=== PATIENT | female | born 1975 | race Caucasian/White ===

== ENCOUNTER → 2018-04-21 | Outpatient (CLI) | payer OTHER | LOC: M.ULTRA 08:47 | DX: K76.0 Fatty (change of) liver, not elsewhere classified (principal); K76.89 Other specified diseases of liver; K42.9 Umbilical hernia without obstruction or gangrene; R16.1 Splenomegaly, not elsewhere classified; R10.84 Generalized abdominal pain ==

== ENCOUNTER → 2018-04-29 | Outpatient (CLI) | payer OTHER | LOC: M.LAB 04:27 | DX: Z01.812 Encounter for preprocedural laboratory examination (principal) ==

== ENCOUNTER → 2018-05-04 | Outpatient (CLI) | payer OTHER | LOC: M.NUC 07:31 | DX: R10.11 Right upper quadrant pain (principal); F41.8 Other specified anxiety disorders; E78.5 Hyperlipidemia, unspecified; I10 Essential (primary) hypertension; E66.9 Obesity, unspecified ==

== ENCOUNTER → 2018-06-14 | Day surgery (SDC) | payer OTHER ==
[~2018-06-14] MED LIST: EFFEXOR 5050 MG/1 T1 PO; GEMFIBROZIL 60600 MG PO; HYZAAR 50-12.51 EACH PO; OMEPRAZOLE 20 M20 M1 PO; ROXICODONE5 M2 PO
[2018-06-14 08:19] LABS: HEMOGLOBIN 12.3 gm/dL (12.0-15.0); MCH 26.3 pg (26.0-34.0); MCHC 33.3 g/dL (28.0-37.0); RBC 4.69 mil/uL (4.20-5.00); RDW-CV 13.9 % (10.5-14.5)
[2018-06-14 08:30] LABS: CALCIUM 8.6 mg/dL (8.5-10.1); CREATININE 0.8 mg/dL (0.6-1.3); POTASSIUM 3.4 mmol/L (3.5-5.1)
--- NOTE | 2018-06-14 17:09 | EKG ---
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1975 Requested By: Jayleen Cardozo Order Number: [id number] Kathleen MD: Eliseo Keyes Measurements Intervals [place] Rate: 80 P: 33 NM: 179 QRS: -36 QRSD: 102 T: 16 QT: 397 QTc: 458 Interpretive Statements Sinus rhythm Left atrial enlargement Left axis deviation Borderline low voltage, extremity leads Abnormal R-wave progression, late transition No previous ECG available for comparison Electronically Signed On 06-14-2018 17:09:07 CDT by Eliseo Keyes [email or web address] <ELECTRONICALLY SIGNED> By: Eliseo Keyse MD, [facility] 06/14/18 1709 5 5 Eliseo Keyes MD, FAC /EPI
--- NOTE | 2018-06-15 12:56 | OP ---
[address] [address] OPERATIVE REPORT Name: CRYSTAL JACOBSEN Room: [facility].#: [id number] Admission: 06/14/18 Attend Phys: Jayleen Cardozo DO Discharge: Date of : 71 Report #: [id number] THIS REPORT FOR: //name// CC: Jayleen Navas DICTATED BY: Chris Fleming DO DATE OF SERVICE: 06/14/2018 PREOPERATIVE DIAGNOSIS: Biliary dyskinesia. POSTOPERATIVE DIAGNOSIS: Biliary dyskinesia. FINDINGS: Adhesions in the right lateral abdomen, adhesions and omental attachment to the gallbladder, small umbilical hernia with incarcerated preperitoneal fat. SURGEON: Jayleen Cardozo DO. COSURGEON: Dr. Chris Fleming DO PGY2. COMPLIANCE AIDE: Colby Scott, MS3. OPERATION PERFORMED: Laparoscopic cholecystectomy with primary repair of umbilical hernia. ANESTHESIA TYPE: General and local. ESTIMATED BLOOD LOSS: 5 mL. SPECIMEN REMOVED: Gallbladder. COMPLICATIONS: None. CONDITION: Stable. DISPOSITION: PACU to home. INDICATIONS FOR PROCEDURE: The patient is a pleasant 43-year-old female who presented to the office with chief complaint of right upper quadrant abdominal pain, aggravated by meals. The patient had abdominal ultrasound that showed no cholelithiasis or sludge. She subsequently had a PIPIDA scan that showed her to have a gallbladder ejection fraction of 20%. Discussed with the patient laparoscopic cholecystectomy. The patient wished to move forward with surgery. Full discussion of procedure, alternatives, risks [place] [address] OPERATIVE REPORT Name: DELMARCRYSTAL Room: [facility] M.R.#: [id number] Admission: 06/14/18 Attend Phys: Jayleen Cardozo DO Discharge: Date of : 71 Report #: [id number] discussed include but not limited to bleeding, infection, postoperative pain, scarring, hernia, conversion to open procedure, injury to other abdominal organs mainly stomach, bowel, liver, bile ducts and bile duct injury were to occur, transfer to tertiary care facility for higher level of care and further surgery with hepatobiliary specialist, bile leak, biloma and anesthesia risks. The patient was understanding of these risks and agreed to proceed with surgery. The patient also had a small umbilical hernia. Discussed that we would repair this primarily at the time of surgery without mesh. OPERATIVE TECHNIQUE: The patient was again seen and examined in preop holding, fully informed written consent was obtained. Preoperative antibiotics of 2 grams Ancef were given. The patient was subsequently transported to the operating room suite and placed on the operating table in supine position. At this time, anesthesia induced general endotracheal intubation and general anesthesia was successful. Next, the board was placed to the feet. SCDs were placed to bilateral lower extremity calves. Right arm was tucked. Left arm was placed on an arm board. Grounding pad was placed to right lateral thigh, all extremities were padded and protected. The patient was prepped and draped using standard sterile fashion. Time-out was performed prior to onset of procedure. Began by injecting 10 mL of 0.5% Marcaine inferior to the umbilicus. We then made a horizontal incision inferior to the umbilicus, dissected down through dermal and subcutaneous tissue until the umbilical hernia was reached. This was dissected circumferentially around the umbilical stalk and then removed from the umbilical stalk. Hernia sac was entered, was noted to be containing incarcerated preperitoneal fat. This was reduced back into the abdomen. Hernia sac and some preperitoneal fat were excised from the fascial edges. A hemostat was used to ferrer the peritoneum. At this time, 2-0 Vicryl stay sutures were placed on the bilateral fascial edges. 12 mm Omar trocar was placed in the abdomen. Abdomen was insufflated first using low flow, then high flow. The patient was placed in reverse Trendelenburg with left side down. A 10 mm 0 degree laparoscopic camera was brought into the field and inserted into the abdomen, noting no underlying injury to the abdominal contents on entry into the abdomen. We surveyed the abdomen. There was noted to be dense adhesions on the right lateral abdomen, extending up to the right upper quadrant as well as omentum covering liver, with attachments to the liver and gallbladder. Additional 10 mm trocar was placed in the epigastric region and two 5 mm trocars were placed in the right upper quadrant. The omentum was swept caudally. The right upper quadrant adhesions were taken down using electrocautery. Once the gallbladder was visualized, intraoperative picture was obtained. Gallbladder was grasped with locking wavy grasper, elevated cephalad and anteriorly. Omental and peritoneal attachments of the gallbladder were taken using electrocautery, carefully dissected down until Jostin's pouch was located. Jostin's pouch was grasped. We began the dissection lateral aspect of the gallbladder into the peritoneum, this was taken back to the liver edge using Maryland grasper. The cystic duct was isolated circumferentially. The cystic artery was noted to be just posterior and medial to this. This was dissected [address] [address] OPERATIVE REPORT Name: CRYSTAL JACOBSEN Room: [facility]#: [id number] Admission: 06/14/18 Attend Phys: Jayleen Cardozo DO Discharge: Date of : 71 Report #: [id number] out in similar fashion. Critical view of safety was obtained. Intraoperative pictures were taken. A 10 mm clip printed products assembler was brought into the field. Cystic duct was clipped twice proximally and twice distally and ligated using laparoscopic scissors. Cystic duct was clipped twice distally, once proximally. This was also transected using laparoscopic scissors. Intraoperative pictures were then obtained. Noted to be no hemorrhage or bile leak from the cystic duct or artery clips. Again, the dissection of the gallbladder from the liver bed, noted an additional small posterior artery coursing into the posterior aspect of the gallbladder. This was isolated using Maryland dissector and also clipped once distally and proximally and transected using laparoscopic scissors. Gallbladder was then excised from the liver bed. Hemostasis of the liver bed was achieved using electrocautery. Gallbladder was placed into a 10 mm EndoCatch bag through the umbilical port. The patient was then leveled out. Abdomen desufflated under direct visualization. Epigastric right upper quadrant trocars were removed. Once the abdomen was fully desufflated, Omar trocar was removed. The gallbladder was removed through the umbilical incision. Fascial edges were then grasped with bilateral lanre Palomo. Stay sutures were removed and a 0 Vicryl interrupted suture in [id number] fashion was used to close the fascial defect of the umbilical hernia. Once this was performed, layered closure was done, subcutaneous space was closed using 3-0 Vicryl. Skin was closed using running 4-0 Monocryl. Interrupted 4-0 Monocryl were used to close the epigastric right upper quadrant trocar. The abdomen was cleansed using wet and dry lap. Additional 30 mL of 0.5% Marcaine was used for local anesthetic. Sterile dressings were applied, Mastisol, Steri-Strips, gauze and Tegaderms. The patient was extubated in the operating room and transferred to PACU in stable condition after brief recovery from anesthesia PLAN: To discharge to home and follow up in the office with Dr. Cardozo in 1 week. <ELECTRONICALLY SIGNED> By: Jayleen Cardozo DO 06/15/18 1256 1036 [id number] Cardozo DO /nt
--- NOTE | 2018-06-16 12:05 | PATH ---
[address] [address] PATHOLOGY RPT PROCEDURE Name: TAMIKA JACOBSEN Room: [facility] M.R.#: [id number] Admission: 06/14/18 Date of : 71 Discharge: Report #: [id number] Path Case #: [id number] [facility] Accession Number: [id number] . 01 Material submitted: . GALLBLADDER . 01 Clinical history: . Biliary dyskinesia, umbilical hernia . 02 Diagnosis: Gallbladder: - Chronic cholecystitis with cholesterolosis. (BRAULIO:tye; 06/15/2018) MBR/06/15/2018 . 02 Electronically signed: . Jonathan De Dios MD, Pathologist NPI- [id number] . 01 Gross description: . The specimen is received in formalin, labeled "Tamika Jacobsen, gallbladder", is an intact, gallbladder measurin 7.0 x 3.2 x 1.7 cm. The serosa is covered by yellow, lobulated adipose tissue. The lumen is filled with yellow-green viscous bile and no discrete calculi. The mucosa is green and diffusely covered by yellow flecks. The wall has an average thickness of 0.1 cm. No discrete masses are identified. Lead Machinist tissue is submitted in A1. (SWS; 06/14/2018) SHS/SHS . 02 Pathologist provided ICD-10: K81.1, K82.4 . 02 CPT . 981576 Specimen Comment: A courtesy copy of this report has been sent to Specimen Comment: [phone], . Specimen Comment: Report sent to / DR ESPINAL Specimen Comment: A duplicate report has been generated due to demographic updates. Performed at: [address] [id number] MD Olman Munoz MD Phone: [phone] Performed at: 02 [facility] [address] [place], [place] [id number] [address] [address] PATHOLOGY RPT PROCEDURE Name: TAMIKA JACOBSEN Room: [facility].#: [id number] Admission: 06/14/18 Date of : 71 Discharge: Report #: [id number] Path Case #: [id number] MD Jonathan De Dios MD Phone: [phone]
== END | disposition home or self-care (01) ==
LOC: M.SUR 07:40
PROVIDERS: Surgery
DX: K81.1 Chronic cholecystitis (principal); K42.0 Umbilical hernia with obstruction, without gangrene; K66.0 Peritoneal adhesions (postprocedural) (postinfection); I10 Essential (primary) hypertension; E78.5 Hyperlipidemia, unspecified; F32.9 Major depressive disorder, single episode, unspecified; Z98.890 Other specified postprocedural states; Z79.899 Other long term (current) drug therapy; Z88.8 Allergy status to other drugs, medicaments and biological substances

== ENCOUNTER → 2019-05-17 | Outpatient (CLI) | payer OTHER ==
--- NOTE | 2019-05-24 18:23 | SLEEP ---
[address] [address] SLEEP STUDY REPORT Name: CRYSTAL JACOBSEN Room: [facility]#: [id number] Admission: 05/17/19 Attend Phys: Eliseo Keyes MD Discharge: Date of : 71 Report #: [id number] THIS REPORT FOR: //name// CC: Flory Keyes This study has been reviewed in its entirety by a board certified sleep specialist DATE OF SERVICE: 05/17/2019 HOME SLEEP STUDY REFERRING PHYSICIAN: Eliseo Keyes MD. The patient is a 44-year-old who weighs 275 pounds with a BMI of 40.6. The patient's [place] score was 9. The patient underwent home sleep study performed at [facility]. Total recording time was 411 minutes. During the night of the study, the patient had 46 obstructive apneas, no central or mixed apneas and 83 hypopneas. The patient's AHI was 19.6 per hour with a supine AHI of 29 per hour. Nocturnal oximetry study revealed an average oxygen saturation of 94% with lowest of 79%. Five minutes were spent in oxygen saturation less than 90%. EKG revealed mean heart rate of 82 beats per minute. IMPRESSION: 1. Moderate sleep apnea-hypopnea syndrome with worsening during supine sleep. Total AHI 19.6 per hour with a supine AHI of 29 per hour. 2. Mild nocturnal hypoxia secondary to obstructive sleep apnea. RECOMMENDATIONS: 1. The patient would benefit from treatment of sleep apnea with CPAP. This can be done as an in-lab versus home auto-titration study. 2. Once the patient is optimally treated with CPAP, then follow up in 4-6 weeks to assess compliance and to document clinical improvement. 3. Avoid supine sleep. 4. Weight loss is strongly advised. 5. Avoid [place] [address] SLEEP STUDY REPORT Name: CRYSTAL JACOBSEN Room: [facility]#: [id number] Admission: 05/17/19 Attend Phys: Eliseo Keyes MD Discharge: Date of : 71 Report #: [id number] 6. Cautioned regarding driving until symptoms of sleep apnea resolve with above recommendations. <ELECTRONICALLY SIGNED> By: Luke Kimball MD 05/24/19 1823 1600 [id number] Kimball MD /nt
== END ==
LOC: M.SLEEPLAB 10:00
DX: G47.33 Obstructive sleep apnea (adult) (pediatric) (principal); G47.34 Idiopathic sleep related nonobstructive alveolar hypoventilation

== ENCOUNTER → 2019-10-06 | Outpatient (CLI) | payer OTHER ==
--- NOTE | 2019-11-12 20:18 | SLEEP ---
[address] [address] SLEEP STUDY REPORT Name: CRYSTAL JACOBSEN [id number] Admission: 10/06/19 Attend Phys: EJ Velazco Discharge: Date of : 71 Report #: [id number] THIS REPORT FOR: //name// CC: Eliska. Cardenas This study has been reviewed in its entirety by a board certified sleep specialist DATE OF SERVICE: 10/06/2019 SLEEP STUDY INDICATION FOR SLEEP STUDY: Excessive daytime sleepiness with obstructive sleep apnea, previously also documented on home sleep study. INTERPRETATION: Total duration of the study is 469 minutes out of which she was asleep for 271 minutes with an overall sleep efficiency decreased to 58%. Sleep onset was delayed and occurred 1 hour and 8 minutes after lying down in bed. N1 sleep duration was elevated to 20%, N2 duration was 76%, N3 duration was 3.3%, and REM duration was 0.6%. This is a split night sleep study. The patient initially was observed without a positive airway pressure therapy for 205 minutes during this diagnostic portion of the sleep study. The patient was asleep for 86 minutes. This entire duration was in non-REM sleep. During this time duration, we recorded multiple sleep-related respiratory events, hypopneas predominated, 20 hypopneas were recorded in addition to 2 obstructive apneas and 22 respiratory-effort related arousals. Overall, apnea-hypopnea index was elevated to 15.4. Body position data indicates that the patient was observed asleep in the supine position for 26 minutes. The rest of the time, the patient was in other positions. Supine apnea-hypopnea index was significantly higher at 48.3. Mean heart rate was 91. Periodic movement index is normal at 5.6. There is marked sleep fragmentation observed with an arousal index elevated to 64.6. Mean heart rate was 91. We did record multiple desaturations; however, O2 saturation was maintained at or above 88%. The patient was subsequently placed on CPAP therapy and was observed on CPAP therapy for 263 minutes. This included 186 minutes of sleep time, which in turn included 1.5 minutes in REM sleep, the rest being non-REM sleep. The patient's mean heart rate was now 79. Periodic limb movement index remained normal at 3.9. Arousal index remained significantly elevated at 86. Review of the CPAP titration indicates that the patient was titrated beginning with a CPAP pressure of 5 cm of water, gradually increasing it to 14 cm of water. Throughout the CPAP titration, the patient continued to have hypopneas and the patient failed to adequately [place] [address] SLEEP STUDY REPORT Name: CRYSTAL JACOBSEN Room: [facility]#: [id number] Admission: 10/06/19 Attend Phys: EJ Velazco Discharge: Date of : 71 Report #: [id number] IMPRESSION: 1. Obstructive sleep apnea with an apnea-hypopnea index of 15.4. O2 saturation is maintained at or above 88% during the diagnostic portion of the sleep study. 2. There is a significant positional variation. Sleep-related respiratory events are more common when the patient is lying supine. 3. The patient failed to adequately respond to CPAP therapy. RECOMMENDATIONS: 1. Recommend a repeat sleep study for BiPAP titration. 2. While during the next sleep study, we will also ask the patient to lay supine, so that she could be corrected in that position at home, suggest asking the patient to avoid sleeping supine if clinically appropriate. 3. Clinical correlation is advised regarding weight loss. Recommend avoiding driving or other activities requiring vigilance if drowsy. This entire sleep study was reviewed by a board certified sleep physician. <ELECTRONICALLY SIGNED> By: Torres Menon MD 11/12/192017 1819 Evette Menon MD /nt
== END ==
LOC: M.SLEEPLAB 19:41
PROVIDERS: ATTEND Specialist
DX: G47.33 Obstructive sleep apnea (adult) (pediatric) (principal)